=== PATIENT | male | born 1960 | race Caucasian/White ===

== ENCOUNTER 2017-05-29 15:04 | Inpatient (IN) | payer MEDICARE, MEDICAID ==
--- NOTE | ~2017-05-29 | PR ---
[place], [place] PROGRESS NOTE NAME: ALEXANDRA EAST [facility] #: [id number] UNIT #: [id number] ROOM: 316 DOCTOR: FANY DAVIS MD BIRTHDATE: [birth year] DOS: 05/31/2017 CHIEF COMPLAINT: "Hey, when do I get to go home. My daughter lives in [place]. I am from [place]." SUMMARY OF THE VISIT: The patient was interviewed as he sat in a Juliet chair waiting for his breakfast. He engaged in conversation. He does exhibit spotty memory loss. On a positive note, he does state that he has been here about 2 days; however, he exhibits other memory loss when pushed on fine details. Of note, the patient has been fairly cooperative. There have not been any major outbursts or any new behavior that has been unpredictable. He does seem to be tolerating the current medication regimen well and I see no sedation or somnolence. MENTAL STATUS: He is alert and oriented with time gaps. Mood does seem to be more euthymic. Affect is more appropriate. There is no doug or hypomania and no psychotic symptoms are noted. Short term memory is poor. Otherwise, he is intact. PLAN: I will continue my taper of the Klonopin bringing the Klonopin dose from 0.25 mg 3 times a day down to twice a day. I will simultaneously increase the Exelon patch from 4.6 to 9.5 mg a day while increasing the Namenda from 5 mg a day to 5 mg twice a day. His valproic acid level is therapeutic at 96.1. I will continue to monitor, continue to explore placement options, discharging then when psychiatrically stable. FANY DAVIS MD CM:PNTRANS [id number] FANY DAVIS MD 05/31/17 2356 interface
--- NOTE | ~2017-05-29 | PR ---
[place], [place] PROGRESS NOTE [id number] #: [id number] ROOM: 316 DOCTOR: FANY DAVIS MD BIRTHDATE: [birth year] DOS: 06/01/2017 CHIEF COMPLAINT: "Where do you put the borges, how do you turn this thing on." SUMMARY OF THE VISIT: The patient was interviewed as he sat in the dining area, watching television and waiting for breakfast. He seemed convinced that the Juliet chair that he was sitting in with some type of motorized vehicle and he was looking for the borges to turn it on and be able to drive out of here. He did redirect with some difficulty at no point in time once he agitated; however, he is very confused. MENTAL STATUS: He is alert and oriented to self. He does not realize he is in the hospital and he is certainly not oriented to time. Mood does seem to be still somewhat labile. Affect at times is inappropriate. Misrepresents things or misidentifies things. Short-term memory is exceedingly poor. PLAN: I will maintain his current dose of Depakote as his valproic acid level was therapeutic at 96.1. I see no side effects from the medication itself. I will maximize his Exelon patch from 9.5 to 13.3 mg a day. Continue to engage in individual and doran milieu activity, exploring possible placement options and returning to the least restrictive environment when stable. FANY DAVIS MD CM:PNTRANS [phone] FANY DAVIS MD 06/03/1731 interface
--- NOTE | ~2017-05-29 | PR ---
[place], [place] PROGRESS NOTE [id number] #: [id number] ROOM: 316 DOCTOR: FANY DAVIS MD BIRTHDATE: [birth year] DOS: 06/03/2017 CHIEF COMPLAINT: "I' up, I' am up." SUMMARY OF THE VISIT: The patient was interviewed as he was resting in bed. Nurses report that he had a horrible evening last night requiring multiple intramuscular injections with minimal results at first, later culminating in him finally going to bed. The patient was agitated and demanding to leave. He thought his daughter was here. Despite attempts to verbally redirect, he escalated first verbally and then second physically. MENTAL STATUS EXAMINATION: This morning, he is alert and oriented to self only. He does not realize he is at the hospital let alone at [place]. His responses were short and simple and at times totally inappropriate to the questions I asked of him. There is no doug or hypomania. PLAN: At the present time is now to finally discontinue the Klonopin in case the benzodiazepine is causing behavioral disinhibition. I will maximize out the dose of Namenda to 10 mg b.i.d. We will continue to engage in individual and doran milieu activity with the plan to return to at least restrictive environment when stable. FANY DAVIS MD CM:PNTRANS [id number] FANY DAVIS MD 06/03/17 1610 interface
--- NOTE | ~2017-05-29 | PR ---
[place], [place] PROGRESS NOTE [id number] #: [id number] ROOM: 316 DOCTOR: FANY DAVIS MD BIRTHDATE: [birth year] DOS: 06/07/2017 CHIEF COMPLAINT: "Oh you are back again." SUMMARY OF THE VISIT: The patient was interviewed as he reclined in a Juliet chair. He engaged in superficial conversation. He does report that he believes he is in the hospital ____. I attempted to redirect how much of this he retains is limited. He was fairly bright and pleasant with us. Nurses' report yet again he did not sleep at all last night and was up and very agitated throughout the night. MENTAL STATUS: He is alert and oriented to person, somewhat to place and not time. Mood remains labile. Affect inappropriate. There is no doug or hypomania. There is some delusional system present. PLAN: I will go ahead and discontinue trazodone as the 300 mg at bedtime has been ineffective. I will increase his Seroquel 50 mg twice daily and 200 at night, increasing that dose from 100-200. I will also utilize Remeron 15 at bedtime, both as an antidepressant and as a sleep aid to see if we can get him sleeping through the night once again. We will engage in individual and doran milieu activity, returning to the least restrictive environment when stable. FANY DAVIS MD CM:PNTRANS 1005 FANY DAVIS MD 06/08/17 0030 interface
--- NOTE | ~2017-05-29 | PR ---
[place], [place] PROGRESS NOTE NAME: [facility] [id number] UN[facility] #: [id number] ROOM: 316 DOCTOR: GUILLERMO ESTRELLA BIRTHDATE: [birth year] DOS: 06/02/2017 CHIEF COMPLAINT: "Good morning, I would like to go back to my room." SUMMARY OF VISIT: The patient was assessed in the dining room where he was sitting in a Juliet chair. He has finished breakfast. He engaged readily in conversation. Initially, he was hesitant to talk to me for a few seconds, but then I kept at it and he started responding to my questions, very cooperative. Nurses have noted that he is better. He is not pleasantly confused. He is ____ confused, but better. After engaging conversation with him, I can see what they are talking about. He wants when he wants ____, and if he does not get it as quickly as he thinks, he has some to say about it. MENTAL STATUS: He is alert and oriented to person, place, I do not think to time. Mood is tending towards euthymic. Affect overall was appropriate. No overt signs of auditory or visual hallucinations, delusions, paranoia, doug or hypomania. Some short-term memory issues. PLAN: His valproic acid level is in the therapeutic range, I can see from the notes of Dr. Dueñas, is trying to wean his Klonopin and titrate up his Namenda and his Exelon. I will continue to do so at this point in time. He is on the maximum dose of Exelon. I will go ahead and decrease the Klonopin to once a day and increase his Namenda. Again towards a goal of a maximum dose of 20 mg every day. We will continue to try to engage in individual and doran milieu therapy with the plan to discharge once stable. ROWAN ESTRELLA CNP CM:PNTRANS 3 3 GUILLERMO ESTRELLA 06/04/17853 interface
--- NOTE | ~2017-05-29 | PR ---
[place], [place] PROGRESS NOTE NAME: ALEXANDRA EAST [facility] #: [id number] UNIT #: [id number] ROOM: 316 DOCTOR: Caryn PAIZ,ARELY BIRTHDATE: [birth year] DOS: 06/08/2017 SUBJECTIVE: The patient seen and spoke with the staff. Per staff, the patient slept well, took his medication. No breakthrough problems or issues. The patient was pleasant, cooperative. He was in the day area. He reports doing good. He denied being depressed or sad. He reports good sleep and appetite. He denied any side effect from the medication. He was not in any distress. MENTAL STATUS EXAMINATION: The patient was pleasant, cooperative. Described his mood as "okay." Affect, mood congruent. Thought process goal directed. No flight of ideas, loosening of association. He denied auditory or visual hallucination. No delusion or paranoia noted. He denied suicidal ideation, intent or plan. He also denied homicidal ideation, intent or plan. ASSESSMENT: Schizoaffective disorder. PLAN: 1. Continue current medication and care. 2. Continue redirection. 3. Encouraged activity and doran milieu. ARELY PAIZ MD CM:TED [phone] Cayrn PAIZ 06/08/17 2159 interface
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
--- NOTE | ~2017-05-29 | PR ---
[place], [place] PROGRESS NOTE NAME: ALEXANDRA EAST [facility] #: [id number] UNIT #: [id number] ROOM: 316 DOCTOR: Caryn PAIZ,ARELY BIRTHDATE: [birth year] DOS: 06/09/2017 PSYCHIATRIC PROGRESS NOTE SUBJECTIVE: The patient seen and spoke with the staff. Per staff, the patient is doing well. No combative behavior. Slept well last night. Medication compliant. The patient was in his room. He reports doing good. No behavioral problems or issues. He denied any side effect from the medication. Denied being sad or depressed. He did not express any other concern. MENTAL STATUS EXAMINATION: The patient was pleasant, cooperative, described his mood as "good." Affect, mood congruent. Thought process goal directed. No flight of ideas or loosening of association. He denied auditory or visual hallucination. No delusion or paranoia noted. He denied suicidal ideation, intent or plan. He also denied homicidal ideation, intent or plan. ASSESSMENT: Schizoaffective disorder. PLAN: 1. Continue current medication and care. 2. Continue redirection and doran milieu. 3. Final medication management and discharge plan by the regular team. ARELY PAIZ MD CM:TED [id number] Caryn PAIZ 06/09/17 1547 interface
[2017-05-29] MEDS ORDERED: ZYPREXA10 M2 IM (15:16)
[2017-05-29] MEDS ORDERED: ZYPREXA7.5 M1 PO (15:17)
[2017-05-29] MEDS ORDERED: NORCO 5-325 TA1 EACH PO (15:19)
[2017-05-29] MEDS ORDERED: ASPIRIN ADULT L81 M1 PO (15:20)
[2017-05-29] MEDS ORDERED: BACITRACIN 500U30 GM OPH (15:21)
[2017-05-29] MEDS ORDERED: CLONAZEPAM0.25 MG PO (15:23)
[2017-05-29] MEDS ORDERED: COLACE100 MG PO (15:23)
[2017-05-29] MEDS ORDERED: CYCLOBENZAPRINE10 MG PO (15:24)
[2017-05-29] MEDS ORDERED: DEPAKOTE SPRIN125 MG PO (15:25)
[2017-05-29] MEDS ORDERED: NATURE'S BLEND F1 MG PO (15:25)
[2017-05-29] MEDS ORDERED: LOPRESSOR25 MG PO (15:26)
[2017-05-29] MEDS ORDERED: METFOMIN HYDRO850 MG PO (15:29)
[2017-05-29] MEDS ORDERED: METFORMIN500 MG PO (15:29)
[2017-05-29] MEDS ORDERED: MULTI-VITAMIN1 EACH PO (15:30)
[2017-05-29] MEDS ORDERED: TEMAZEPAM30 MG PO (15:31)
[2017-05-29] MEDS ORDERED: NATURE'S BLEND100 M2 PO (15:32)
[2017-05-29 18:25] VITALS: BP 144/99
[2017-05-29 18:33] VITALS: BP 144/99
--- NOTE | 2017-05-29 18:35 | NUR ---
ALEXANDRA EAST a 57 year old M admitted via wheel chair from the ADMITTING as a voluntary admission BY GUARDIAN Arrived on unit at .1815 ALLERGIES: .N Vital signs are: 98.7-81-18 144/99. The client signed the following forms with stated understanding: Authorization For The Release of Medical Information, Clothing List, Consent to Voluntary Admission and Hospitalization, Consent and Release Forms/Receipt of Rights, Acknowledgement of Advance Directive Information, Behavioral Health Consent Form, and Informed Consent of Medications. [facility] A search was conducted and hazardous articles were removed. Client was oriented to the unit. PASCUAL KATZ PT CAME UP IN A WHEELCHAIR WITH SECURITY, THIS NURSE AND MILEU, PT IS COOPORATIVE, PLEASANT AND TALKATIVE, PT IS UNSTEADY AND A TWO ASSIST. PT IS IN HIS STREET CLOTHING, NO HEARING AIDS, GLASSES, OR DENTURES. PT IS GOAL DIRECTED. BS IS 89
[2017-05-29 19:40] LABS: BASO % 0.2 % (0.0-1.0); EOS # 0.3 10*3/uL (0.0-0.4); HEMATOCRIT 39.3 % (42.0-52.0); HEMOGLOBIN 12.9 g/dl (14.0-18.0); LYMPH # 3.7 10*3/uL (1.3-4.4); LYMPH % 29.2 % (27.0-41.0); MEAN CORPUSCULAR HGB 32.8 pg (27.0-31.0); MEAN CORPUSCULAR HGB CONC 32.8 g/dl (33.0-37.0); MEAN PLATELET VOLUME 10.3 fl (9.6-12.3); MONO # 1.3 10*3/uL (0.1-1.0); MONO % 10.3 % (3.0-9.0); NEUT # 7.4 10*3/uL (2.3-7.9); PLATELET COUNT AUTOMATED 166 10*3/uL (130-400); RED BLOOD COUNT 3.93 10*6/uL (4.50-5.90); RED CELL DISTRI WIDTH 13.4 % (0-14.5); WHITE BLOOD COUNT 12.7 10*3/uL (4.8-10.8)
[2017-05-29 19:55] LABS: ALBUMIN 3.3 gm/dl (3.1-4.5); ALKALINE PHOSPHATASE 49 U/L (45-117); BUN 17 mg/dl (7-24); CHLORIDE 104 mmol/L (98-107); CHOLESTEROL 168 mg/dL (<200); CREATININE 0.87 mg/dL (0.70-1.30); HDL CHOLESTEROL 51 mg/dl (40-60); LDL CHOLESTEROL 94 mg/dL (9-159); POTASSIUM 4.1 mmol/L (3.5-5.1); SGOT/AST 15 IU/L (3-35); SGPT/ALT 9 U/L (12-78); SODIUM 140 mmol/L (136-145); TOTAL PROTEIN 7.7 gm/dL (6.4-8.2); TRIGLYCERIDES 117 mg/dl (<150); VLDL CHOLESTEROL 23 mg/dL (6-40)
[2017-05-29 20:00] VITALS: BP 116/88
--- NOTE | 2017-05-29 23:22 | NUR ---
DR GARCIA ON UNIT TO SEE PT FOR MEDICAL CONSULT.
--- NOTE | 2017-05-29 23:30 | NUR ---
PT HAS A SKIN TEAR ON EACH OF HIS FOREARMS. PICTURES TAKEN.
--- NOTE | 2017-05-30 06:50 | NUR ---
PT HAS BEEN OBSERVED ON Q 15 MIN CHECKS & HAS SLEPT PAST 22OO WITH 2 BRIEF AWAKENINGS TO GO TO THE BATHROOM. 1 TIME HE WAS INCONTINENT & THE OTHER TIME HE WAS INCONTINENT. ALSO CONTINENT OF A LARGE BOWEL MOVEMENT. WAS COMPLIANT WITH HS MEDICATIONS & TOOK THEM CRUSHED & MIXED IN APPLESAUCE.
[2017-05-30 08:19] VITALS: BP 142/85
[2017-05-30 08:25] VITALS: BP 142/85
--- NOTE | 2017-05-30 08:30 | NUR ---
Dr. Mccrary was notified of need for lab result review as an elevated WBC count is noted. He reports that he will review the labs this morning.
--- NOTE | 2017-05-30 09:38 | NUR ---
ISHAAN sent updated info. to [facility] Zaldivar to update the Pasrr, change of condition form.
--- NOTE | 2017-05-30 10:15 | NUR ---
NATHAN RECEIVED CALL FROM SISTER WILFREDO CORTEZ. WILFREDO WANTS PT TO GO TO FACILITY CLOS[facility] [place], [place] [facility]. PT IS ON WAITING LIST FOR [facility] UNIT. NATHAN NOTIFIED KATHY PHOENIX OF CONVERSATION.
--- NOTE | 2017-05-30 10:30 | NUR ---
NATHAN SPOKE WITH JUAN AT [facility] ABOUT REFERRAL THAT WERE MADE TO FACILITIES. JUAN HAD SENT 10-11 REFERRALS TO THE [facility] 6 MONTHS AGO. MOST FACILITIES WOULD NOT ACCEPT PT D/T BEHAVIORAL DISTURBANCE. [facility] WAS THE ONLY ONE THAT WOULD CONSIDER PT. PT DOES NOT HAVE ANY BED HOLD DAYS LEFT. SISTER TOOK ALL OF PT'S BELONGINGS WHEN HE WAS SENT TO [facility]. FACILITY DISCHARGED PT.
--- NOTE | 2017-05-30 13:07 | NUR ---
PHYSICAL THERAPY EVALUATION COMPLETED. PATIENT READY AND WILLING TO PARTICIPATE IN EVAL. PATIENT REQUIRES MULITPLE ATTEMPTS TO STAND FROM RECLINER/CHAIR. PATIENT ABLE TO STAND WITH MOD ASSIT X 1; ABLE TO TRANSFER FROM RECLINER TO CHAIR IN HIS ROOM WITH MOD A X 1 WITH DIFFICULTY, STRUGGLE, GETTING OUT OF CHAIR AND SLOW MOVEMENTS WITH SOME FREEZING TYPE EPISODES. PATIENTS. PATIENT HAS B LE STRENGTH WFL TESTING IN HIS CHAIR AND ABLE TO FOLLOW ONE STEP DIRECTIONS WELL. PATIENT REPORTED R LE PAIN AND WAS STATED 6/10 PAIN. PLAN TO CONTINUE PT FOR TRANSFERS, SAFETY, BALANCE, STRENGTHENING. PATIENT WILL BENEFIT FROM A WHEELCHAIR. MODERATE COMPLEXITY EVALUATION WITH INCREASED MANUAL CONTACT AND TIME NEEDED TO TRANSFER PATIENT AND TO REVIEW A MODERATE AMOUNT OF HISTORY. SIGNIFICANT AMOUNT OF EDUCATION REQUIRED FOR SAFETY.
--- NOTE | 2017-05-30 14:08 | NUR ---
Garrison was administered Pneumovax and Influenza vaccine on this date as previously requested. See process intervention screen and MAR. Both were administered as per policy for vaccines.
--- NOTE | 2017-05-30 16:23 | NUR ---
Occupational Therapy evaluation completed [facility] with full eval to follow. Precautions include fall risk, personal alarm, poor STM, moderate complexity level 28321. Recommend OT per POC and SNF upon d/c to enable max potential in ADLs, safety and mobility. Thank you for this referral. Aliya Durand OTR/L
--- NOTE | 2017-05-30 17:06 | NUR ---
Garrison is pleasant in conversation with staff. No aggressive behavior has been exhibited. Mood is generally euthymic and some appropriate smiling is present @ times. No overt s/s of sensory disturbances are noted. 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 Dr. Dueñas in to see him today. Physical therapy also in as well. States a belief that he is working @ this time and "travels alot." Dr. Clarke in to see Garrison today. Appetite is good for meals. Energy level appropriate. Refer to [facility] flowsheet for specific monitoring.
[2017-05-30 20:00] VITALS: BP 135/78
--- NOTE | 2017-05-30 21:15 | NUR ---
PATIENT RESTING IN BED AT THIS TIME. PATIENT MEDICATION COMPLIANT. VOICES NO COMPLAINTS OF PAIN OR DISCOMFORT AT THIS TIME. DRESSINGS TO BILATERAL FOREARMS INTACT
--- NOTE | 2017-05-31 04:37 | NUR ---
24 HR chart check completed.
--- NOTE | 2017-05-31 05:54 | NUR ---
Q 15 MINUTE CHECKS MAINTAINED. SLEPT > 7 HOURS THIS SHIFT
--- NOTE | 2017-05-31 07:47 | NUR ---
IN A DEENA CHAIR IN THE DINING ROOM
[2017-05-31 08:08] VITALS: BP 146/83
--- NOTE | 2017-05-31 08:09 | NUR ---
05/30/2017 Morning: Christy This helps the patient with self esteem, memory,thinking,concentrating,socializing and lifting up their spirits This patient did attend group as well as participated. Patient is new so i had everyone introuduce themselves and patient introuduce himself. Patient also told group a little about himself. Patient jumped right into group answered questions to christy,interacting with others and laughing along with others. Patient was appropriate during group
--- NOTE | 2017-05-31 12:54 | NUR ---
HIS SISTER(PAOLO) CALLED TO GET AN UPDATE. SHE STATED SHE WANTED HIM ON A REGUALR DIET, THAT THERE WAS NO REASON FOR HIM TO BE ON A PUREED DIET. THIS NURSE CALLED [facility] AND THEY DIDN'T KNOW WHY EITHER. THIS NURSE TALKED TO DESI
--- NOTE | 2017-05-31 13:09 | NUR ---
Exercise/Marceline Hole This helps with movement self esteem, concentration, thinking circulation and socialization Patient did attend group as well as participated. Patient was appropriate during group,also encouraging others. At times patient showed signs of confusion. Patient did very well in a seated position throwing the carrillo bags and making the pockets,being the high score of the group
--- NOTE | 2017-05-31 14:59 | NUR ---
PHYSICAL THERAPY Patient was aggitated and the activity person and nurse recommended that the patient not be treated today due to his increased aggitation. Patient was not treated today for this reason. 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
--- NOTE | 2017-05-31 15:29 | NUR ---
Remininscing This helps with memory,concentration, self esteem and socializing Patient was in attendence, didnt participate very much. Patient was agitated wanting out of his chair believing he was at work and if left in the chair would be stuck there over the weelend. not able to redirect him. notified nurse
--- NOTE | 2017-05-31 16:07 | NUR ---
PATIENT IDENTIFIED BY NAME AND WRIST BAND. PATIENT SEATED IN DEENA CHAIR UPON ARRIVAL THIS DATE IN ACTIVITY ROOM. PATIENT WILLING TO COMPLETE GROOMING TASK IN ROOM THIS DATE. PATIENT BRUSHED TEETH WITH MAX A REQUIRED DUE TO WEAKNESS B HAND OPEN CONTAINER AND INSTRUCITON REQUIRED TO SEQUENCE TASK. PATIENT REQUIRED SIMPLE ONE STEP COMMANDS. PATIENT SEEN 1:1 FOR 15 MINUTES. HOSSEIN SANCHEZ
--- NOTE | 2017-05-31 18:14 | NUR ---
ALERT TO SELF, CONFUSED, IRRITABLE AT TIMES, GETS LOUD AT TIMES, THINKS HE IS AT WORK AND DEMANDED TO GET OUT OF HERE, WAS REDIRECTABLE, NO HALLUCINATIONOR DELSUSIONS NOTED, MED COMPLIANT TAKES PILLS WHOLE, EATING AND DRINKING ADQUATELY, WILL CONTINUE TO MONITOR
[2017-05-31 20:18] VITALS: BP 142/90
--- NOTE | 2017-05-31 21:25 | NUR ---
MEDICATED WITH ATIVAN 1MG PO FOR INCREASED ANXIETY. ATIVAN EFFECTIVE FOR ANXIETY. RESTING IN BED AT THIS TIME
--- NOTE | 2017-06-01 03:54 | NUR ---
24 HR chart check completed.
[2017-06-01 08:00] VITALS: BP 118/82
--- NOTE | 2017-06-01 10:10 | NUR ---
PATIENT COMPLAINT OF RIGHT LEG PAIN 9/10 RATING, PRN TYLENOL 650MG PO GIVEN AT THIS TIME.
--- NOTE | 2017-06-01 10:46 | NUR ---
PATIENT IS CONTINENT, REPOSITIONED IN GERICHAIR, STATING "I'M GOING HOME, I WANT MY CAR TO DRIVE HOME". 1:1 WITH PATIENT, PROVIDED REDIRECTION, ACTIVITY, OFFERED FOOD AND DRINK. ALL INEFFECTIVE. PRN ATIVAN 1MG GIVEN PO AT THIS TIME D/T ESCULATION, RAISING VOICE, BUMPING RIGHT LEG ON TRAY. ENCOURAGED PATIENT TO PARTICIPATE IN GROUP ACTIVITY SESSION AT THIS TIME.
--- NOTE | 2017-06-01 11:10 | NUR ---
PATIENT NO LONGER COMPLAINING OF PAIN, PRN TYLENOL EFFECTIVE AT THIS TIME.
--- NOTE | 2017-06-01 11:16 | NUR ---
DR. SANABRIA ON UNIT TO SEE PATIENT.
--- NOTE | 2017-06-01 11:46 | NUR ---
PRN ATIVAN EFFECTIVE. PATIENT IS CALM AND READY FOR LUNCH AT THIS TIME.
--- NOTE | 2017-06-01 14:46 | NUR ---
PATIENT IS ALERT TO PERSON AND HANDS ON CARE WITH CONFUSION. SHORT AND CORRECTION MEMORY DEFICITS NOTED. MOOD IS ANGRY AND IRRITABLE AT TIMES. CONSTANT 1:1 AND REDIRECTION NOTED. THOUGHT PROCESS IS CONFUSED. DENIES ANY HALLUCINATIONS/DELUSIONS OR HI/SI. PATIENT MEDICATED WITH TYLEONOL FOR LEG PAIN AND WAS EFFECTIVE. 2 PERSON ASSIST WITH ADL'S, SET UP FOR MEALS. MEAL INTAKES ARE GOOD WITH ADEQUATE FLUIDS. CONTINENT OF BOWEL AND BLADDER. MEDICATION COMPLIANT WITH MEDICATION EDUCATION PROVIDED. Q 15 MINUTE SAFETY CHECKS MAINTAINED.
--- NOTE | 2017-06-01 18:36 | NUR ---
PATIENT YELLING AT OTHER PATIENT IN DINING ROOM, REDIRECTED AND CHANGE OF ENVIRONMENT. CONTINUES TO YELL OUT AT STAFF AND ESCULATING. PRN ATIVAN 1MG GIVEN PO AT THIS TIME.
[2017-06-01 20:00] VITALS: BP 142/82
--- NOTE | 2017-06-01 23:41 | NUR ---
PATIENT MEDICATION COMPLAINT. PATIENT TRANSFERRED TO BED WITH ASSIST X 2. CONTINUES TO BE SHAKY. PATIENT ALSO WORD SEEKING AND GETTING IRRITATED AT TIMES WHEN WORDS COME OUT INAPPROPRIATELY. PATIENT INCONTINENT OF URINE. VOICES NO COMPLAINTS OF PAIN OR DISCOMFORT AT THIS TIME
--- NOTE | 2017-06-02 04:19 | NUR ---
24 HR chart check completed.
--- NOTE | 2017-06-02 05:47 | NUR ---
Q 15 MINUTE CHECKS MAINTAINED. SLEPT > 8HRS THIS SHIFT
[2017-06-02 08:05] VITALS: BP 142/63
--- NOTE | 2017-06-02 16:26 | NUR ---
ALERT TO SELF,. CONFUSED, MED COMPLIANT TAKE PILLS WHOLE, RESTLESS, KEEPS TRYING TO SKOOT OOUT OF CHAIR. CONTINENT AND INCONTINENT, WOUND DRESSING INTACT. NO C/O PAIN, EATING AND DRINKING ADEQUATELY. TALKS NONSENSICAL, COVERS CONFUSION WITH HUMOR AT TIMES. NO DELUSIONS OR HALLUCINATIONS, NO COMATIVE OR VERBAL AGGRESSION
[2017-06-02 20:00] VITALS: BP 120/78
--- NOTE | 2017-06-02 22:05 | NUR ---
24 HR chart check completed.
--- NOTE | 2017-06-02 22:21 | NUR ---
PT SITTING IN THE DINING ROOM & HAS BEEN YELLING OUT. INCREASED IRRITABLITY. YELLING OUT FOR CHRIS & STATED THAT SHE IS HERE. SHE NEEDS TO PULL THE TRUCK UP & CALL MOHAN BECAUSE HES NOT GOING HOME TONIGHT BECAUSE ITS SNOWING OUTSIDE. ALERT TO PERSON ONLY. STATED THE YEAR IN 1988. UNRECEPTIVE TO PRESENTATION OF REALITY. COMPLIANT WITH HS MEDICATIONS. MEDICATED WITH ATIVAN 1 MG PO @ 2110.
--- NOTE | 2017-06-03 01:36 | NUR ---
WHEN ASSISTING PT TO BED HE BEGAN CURSING, YELLING & TRIED HITTING STAFF WITH HIS ELBOW. ATIVAN BRIEFLY EFFECTIVE. MEDICATED WITH GEODON 10 MG IM @ 2244 & THIS HAS BEEN EFFECTIVE. PT HAS BEEN RESTING QUIETLY PAST 2299.
--- NOTE | 2017-06-03 06:24 | NUR ---
TOVA HAS BEEN EFFECTIVE & PT HAS SLEPT QUIETLY PAST 2314.
[2017-06-03 07:53] VITALS: BP 139/80
--- NOTE | 2017-06-03 11:36 | NUR ---
PHYSICAL THERAPY Continue with original plan of care toward original goals extended to 06/15/17. Mandy Guardado,PT
--- NOTE | 2017-06-03 11:40 | NUR ---
PATIENT DECLINED OT THIS DATE STATING THAT HE WAS WAITING FOR SOMEONE. WILL TRY BACK LATER DATE. HOSSIEN SANCHEZ
--- NOTE | 2017-06-03 11:41 | NUR ---
Exercise/June Facts and Trivia Exercise helps with mobility,circulation as well as concentrating to stay on task. Trivia also helps with concentration,thinking socializing Patient did not attend exercise portion of group but joined the facts and Trivia portion. Patient had bouts of confussion during trivia. Seeming not understanding the question at times. Patient did talk about fall and halloween as a child
--- NOTE | 2017-06-03 14:29 | NUR ---
PHYSICAL THERAPY Patient presented to therapy with report of pain in his toes and feet. Patient performed sit to stands with standing tolerance for 30 sec. each stand at the railing in the hallway. Patient performed seated ther ex in seated position x 20 reps in all planes. Patient was 1:1 with this HAT BAND ATTACHER for 23 minutes total. Keith Maurer PTA
--- NOTE | 2017-06-03 17:30 | NUR ---
NATHAN RECEICVED CALL FROM JANE. Pilar SEARS /MATTY. WILFREDO HAS NOT FOUND A FACILITY FOR PT. NATHAN EXPLAINED THAT PT MAY NEED TO GO TO [facility] IF A FCILITY CAN NOT BE FOUND CLOSE TO [place]. WILFREDO IS GOING TO CALL JON TO SEE IF THEY WILL TAKE PT BACK.
--- NOTE | 2017-06-03 17:34 | NUR ---
DR. BACON ON UNIT TO SEE PATIENT.
[2017-06-03 20:00] VITALS: BP 140/80
--- NOTE | 2017-06-03 21:54 | NUR ---
PT WAS COMPLIANT WITH HS MEDICATIONS. BECAME ARGUMENTATIVE IN THE DINING ROOM WITH ANOTHER PEER. USING PROFANITY. WHEN REDIRECTED, HE CURSED & YELLED AT STAFF. MEDICATED WITH ATIVAN 1 MG PO @ 2053.
--- NOTE | 2017-06-03 22:23 | NUR ---
24 HR chart check completed.
--- NOTE | 2017-06-04 05:06 | NUR ---
ATIVAN WAS EFFECTIVE & PT SLEPT QUIETLY THROUGHOUT THE SHIFT PAST 2300.
[2017-06-04 08:49] VITALS: BP 139/80
--- NOTE | 2017-06-04 10:32 | NUR ---
PHYSICAL THERAPY Garrison was seen this AM 1:1 for his therapy session. Working on transfer supine/sit with MAX A X 1, X 3 up into sitting. Garrison getting aggitated at this time and not wanting up at all. CLARENCE TIDWELL SILVER PLATER.
--- NOTE | 2017-06-04 11:53 | NUR ---
CARMELITA HANSON AT BEDSIDE TO ASSESS PATIENT. MADE AWARE OF WBC AND ALT RESULTS THIS MORNING. NEW VO WRITTEN DOWN AND READ BACK TO COMPLETE UA/C&S VIA STRAIGHT CATH.
--- NOTE | 2017-06-04 12:51 | NUR ---
pt sister called and states she spoke to "Audi" at [facility] and pt. can return there when psychiatrically stable. SWS let NATHAN Irwin know to call and verify with L.PReba and also let sister know when d/c is planned.
--- NOTE | 2017-06-04 15:39 | NUR ---
Excercise/Bad Jokes and Slogans Benefits: mobility,flexability.circulation,socialization, Patient was in attendence for group but only partialy participated. Patient needed prompting to do exercises. Confused. Patient did attempt to answer a couple of the questions to the jokes but then became confused and worried about going to work. patient was hard to keep redirected back to subject. The group was benefitial to this patientes treatement helping him stay in present reality,and coping with his anger by laughter,deep breathing
--- NOTE | 2017-06-04 15:56 | NUR ---
ATTEMPTED TO STRAIGHT CATH PT PER ORDERS, MET RESISTANCE, STOPPED PROCEDURE. BLADDER SCANNER SHOWS RESIDUAL OF 222 ML'S. CARMELITA HANSON MADE AWARE. NNO AT THIS TIME.
--- NOTE | 2017-06-04 16:45 | NUR ---
CARMELITA HANSON ON UNIT AND INSERTED COLEMAN CATH D/T PT HAS HAD 500-600 ML INTAKE AND 0 ML OUTPUT FOR THIS SHIFT.
--- NOTE | 2017-06-04 17:03 | NUR ---
URINE SENT TO LAB AT THIS TIME FOR UA/C&S.
[2017-06-04 17:12] LABS: BILIRUBIN 1+ (NEGATIVE); BLOOD NEGATIVE (NEGATIVE); CLARITY CLEAR (CLEAR); COLOR YELLOW (YELLOW); GLUCOSE NEGATIVE (NEGATIVE); KETONE TRACE (NEGATIVE); LEUKO ESTERASE NEGATIVE (NEGATIVE); NITRITE NEGATIVE (NEGATIVE); SPECIFIC GRAVITY 1.025 (1.005-1.030)
[2017-06-04 17:24] LABS: BACTERIA TRACE; EPITHELIAL CELLS 0-2; MUCOUS 1+
[2017-06-04 20:19] VITALS: BP 146/78
--- NOTE | 2017-06-04 23:31 | NUR ---
24 HR chart check completed.
--- NOTE | 2017-06-05 00:55 | NUR ---
PT WAS IRRITABLE & VERY VULGAR WITH SEXUAL PROFANITIES AT STAFF. ATTEMPTED TO STRIKE OUT AT STAFF WHEN ASSISSTED TO BED. MEDICATED WITH ATIVAN 1 MG PO @ 2305 WITH WAS EFFECTIVE & PT HAS SLEPT QUIETLY PAST 2329.
--- NOTE | 2017-06-05 05:07 | NUR ---
ATIVAN HAS BEEN EFFECTIVE & PT HAS SLEPT QUIETLY THROUGHOUT THE SHIFT PAST 2329.
[2017-06-05 06:53] LABS: BASO % 0.2 % (0.0-1.0); EOS # 0.2 10*3/uL (0.0-0.4); EOS % 1.7 % (1.0-4.0); HEMATOCRIT 39.7 % (42.0-52.0); HEMOGLOBIN 13.2 g/dl (14.0-18.0); LYMPH # 3.8 10*3/uL (1.3-4.4); LYMPH % 40.1 % (27.0-41.0); MEAN CELL VOLUME 97.3 fl (80.0-94.0); MEAN CORPUSCULAR HGB 32.4 pg (27.0-31.0); MEAN CORPUSCULAR HGB CONC 33.2 g/dl (33.0-37.0); MEAN PLATELET VOLUME 10.1 fl (9.6-12.3); MONO # 1.1 10*3/uL (0.1-1.0); MONO % 11.7 % (3.0-9.0); NEUT # 4.4 10*3/uL (2.3-7.9); PLATELET COUNT AUTOMATED 172 10*3/uL (130-400); RED BLOOD COUNT 4.08 10*6/uL (4.50-5.90); RED CELL DISTRI WIDTH 13.1 % (0-14.5); WHITE BLOOD COUNT 9.5 10*3/uL (4.8-10.8)
[2017-06-05 07:23] LABS: ALBUMIN 2.7 gm/dl (3.1-4.5); ALKALINE PHOSPHATASE 49 U/L (45-117); BUN 21 mg/dl (7-24); CHLORIDE 101 mmol/L (98-107); CREATININE 0.72 mg/dL (0.70-1.30); POTASSIUM 3.5 mmol/L (3.5-5.1); SGOT/AST 11 IU/L (3-35); SGPT/ALT 9 U/L (12-78); SODIUM 139 mmol/L (136-145); TOTAL PROTEIN 7.4 gm/dL (6.4-8.2)
[2017-06-05 08:03] VITALS: BP 136/82
--- NOTE | 2017-06-05 10:46 | NUR ---
PHYSICAL THERAPY Garrison was seen this AM 1:1 for his therapy treatment. Pt not responding to verbal cues and was medicated last night i found out could not treat. CLARENCE TIDWELL VENEER REPAIRER MACHINE.
--- NOTE | 2017-06-05 10:54 | NUR ---
SARAH NOLANNP ON UNIT TO ASSESS PT.
--- NOTE | 2017-06-05 10:59 | NUR ---
06/04/17 Afternoon Crystal Ball: Positive future Patient did not attend group. Patient asleep
--- NOTE | 2017-06-05 13:05 | NUR ---
Exercise/Positivity Patient did not attend group this morning. Patient was still asleep
--- NOTE | 2017-06-05 13:10 | NUR ---
PHYSICAL THERAPY Garrison was seen this PM for his physical therapy session, Pt was up in the day room in his gerichair. With much verbal cueing, Sit/Stand transfer was completed with Mod A x 1 from chair to wheeled walker. Followed by gait, 80' x 1 with Mod A x 1 and verbal cueing for gait, balance and walker safety. Pt back in gerichair at this time with tray up. Pt tolerated session very well. CLARENCE TIDWELL UPSTAIRS MAID
--- NOTE | 2017-06-05 18:35 | NUR ---
PT ALERT TO PERSON ONLY, CONFUSED TO PLACE AND TIME. PT MED COMPLIANT WITHOUT DIFFICULTY. PT ANXIOUS AT TIMES, YELLING OUT, SWEARING AT STAFF. PT PLACED IN QUIET ROOM TO CALM. PT DENIES ANY HOMICIDAL/SUICIDAL THOUGHTS. NO RESPONSE TO INTERNAL STIMULI NOTED. PT UP TO RASHMI, 2 ASSIST WITH TRANSFERS. COLEMAN DRAINING DARK YELLOW URINE. PLAN IS TO MONITOR PT BEHAVIORS ON Q15 MIN SAFTEY CHECKS, PRESENT REALITY TO PT WITH EACH INTERACTION, ENCOURAGE PT TO PARTICIPATE IN GROUPS/ACTIVITIES.
[2017-06-05 20:50] VITALS: BP 145/92
--- NOTE | 2017-06-06 04:34 | NUR ---
24 HR chart check completed.
--- NOTE | 2017-06-06 07:41 | NUR ---
PT ALERT TO PERSON ONLY, MULTIPLE MEDICATIONS AT HS. PT CONTINUES TO BE VULGAR AN COMBATIVE WITH HS CARE, MEDICATION COMPLIANT. 1-1 INEFFECTIVE DUE TO CONFUSION PROVIDED FOOD FLUIDS AND HYGENE CARE. PLACED IN QUIET ROOM ACROSS FROM NURSES STATION FOR INCREASED SUPERVISION DUE TO HIGH FALL RISK. PT INCREASINGLY ALERT AND PLESANT NIGHT WENT ON. PT AGREABLE TO SHOWER, CONTINUES TO BE ALERT TO PERSON ONLY STATING THAT HIS DAUGHTER IS IN THE 8TH GRADE AND BEGINING TO PLAY GOLF. ORAL INPUT 250, COLEMAN OUTPUT 300 DARK URINE. ORAL INTAKE ENCOURAGED.
[2017-06-06 08:00] VITALS: BP 138/84
--- NOTE | 2017-06-06 08:03 | NUR ---
06/05/17 Afternoon BIN This will help patient with his treament goals by solializing,interacting positivly with other patients to use his coping skils to decrease agitation. Patient did attend group as well as participate. Patient stayed on task,with very little help from another patient if patient saw he missed a number. Patient did very well no confusion,no aggressive behavior. Patient did start to "get loud" when another patient started wanting to know if anyone know of a good cruise staff member. Patient was redirected easily
--- NOTE | 2017-06-06 10:16 | NUR ---
PATIENT UP IN CHAIR AT THIS TIME IN DAY ROOM, PARTCIPATING IN GROUP THERAPY. PLEASANTLY CONFUSED AT THIS TIME. CALM AND COOPERATIVE WITH STAFF. MEDICATION COMPLIANT WITHOUT DIFFICULTY. NO HALLUCINATIONS, DELUSIONS, OR BEHAVIORS NOTED. NO COMBATIVENESS NOTED. APPETITE GOOD FOR BREAKFAST. TAKING FLUIDS WELL. SPEECH IS NON SENSICAL D/T CONFUSION. REQUIRES TOTAL CARE FROM STAFF FOR ADLS AND HYGIENE CARE. RESPIRATIONS EASY AND EVEN. COLEMAN INTACT AND DRAINING ORANGE TINTED URINE. NO ACUTE DISTRESS NOTED. PLEASANT INTERACTIONS WITH PEERS.
--- NOTE | 2017-06-06 10:44 | NUR ---
PHYSICAL THERAPY Mr Oreilly was seen this AM X 2, and said NO that he was not going to go or get up and was not going to take his therapy. CLARENCE TIDWELL REAL ESTATE ANALYST.
--- NOTE | 2017-06-06 13:30 | NUR ---
Exercise/Choices/Trivia This will help the patient with his treatment goal of less aggresstion,coping skills. Patient stayed on task while doing exercise. Patient was joking and making all the patients and myself laugh. There seemed to be confussion but then there would be clarity also. Patient was interacting and encouraging and talking with other patients.Laughing and smiling
--- NOTE | 2017-06-06 16:15 | NUR ---
NATHAN left VM for Adm - [facility] of [facility] about taking PT back anf facility and pending discharge is early next week.
--- NOTE | 2017-06-06 16:23 | NUR ---
NATHAN received VM from sister Leslie Guillen. NATHAN returned call. Sister confirm bed hold for [facility] with Adm Huntley. Pendig discharge for next week.
--- NOTE | 2017-06-06 18:12 | NUR ---
WOUND CARE TREATMENTS COMPLETED TO BILATERAL ARMS THIS SHIFT. PT TOLERATED WELL. DENIES ANY PAIN TO AREAS.
[2017-06-06 20:26] VITALS: BP 115/70
--- NOTE | 2017-06-07 01:00 | NUR ---
PT INCREASINGLY CONFUSED FEARFULL OF FALLING OUT OF THE CHAIR. WHEN ATTEMPTING TO PROVIDE CARE PT YELLING OUT "FUCK YOU, YOU NIGGER, YOU FAT FUCKING BITCH". ALERT TO PERSON ONLY UNABLE TO REDIRECT OR CALM. PT STATES THAT STAFF ARE ARGUING WITH HIM AND THAT HE HAS TO GO TO WORK. PT CALLING OUT FOR DAUGHTER CHRIS STATING SHE IS IN THE 8TH GRADE SHE IS JUST A GIRL. PT REPOSITIONED FOR COMFORT. UNABLE TO PLACE IN BED AT THIS TIME HAD PREVIOUS UNSUCCESSFULL ATTMEPT AT 2200, YELLING OUT DISTURBING SLEEP OF PEERS IN ADJACENT ROOMS.
--- NOTE | 2017-06-07 04:28 | NUR ---
24 HR chart check completed.
--- NOTE | 2017-06-07 05:05 | NUR ---
PT DECREASED IN AGITATION IN QUIET ROOM. CONTINUES TO BE RESTLESS AND HAS NOT SLEPT THIS SHIFT. MEDICATION COMPLIANT WITH OUT DIFFICULTY. FLUIDS ENCOURAGED BUT REFUSING, REFUSED HS SNACK ORAL INTAKE 250 ML THIS SHIFT. IMPROVING CLARITY OF URINE. CONTINUE TO REORIENT TO PLACE AND TIME AND REDIRECT NEEDED FOR EPISODES OF AGRESSION AND DISRUPTION.
--- NOTE | 2017-06-07 07:36 | NUR ---
PT DID NOT SLEEP AT ALL THROUGHOT THE NIGHT . MOOD BEGAN TO BRIGHTEN AFTER 1 AM. COMBATIVE WITH CARE BUT REDIRECTABLE AT TIMES, MED COMPLAINT REFUSING SNACK AND MUCH ENCOURAGEMENT FOR FLUID INTAKE.
[2017-06-07 08:00] VITALS: BP 117/67
--- NOTE | 2017-06-07 08:06 | NUR ---
06/06/17 Afternoon SAMUEL This group helps the patient with his treatment goals by staying on task, oriented to reality,decrease in aggression Patient did attend group as well as participated. Patient also has a good sense of humor and was joking with other patients and staff as well as staying on task. Patient showed no signs of aggression or confussion during group
--- NOTE | 2017-06-07 09:32 | NUR ---
PHYSICAL THERAPY Garrison seen this AM 1:1, Pt up in his gerichair leaning to his right. With much verbal cueing transfer sit/stand with MAX A X 1, and up on his third try. Standing balance with wheeled walker MAX A X 1, gait just 13' X 1, MAX A X 1, and Garrison needing cleaned up at this time. I let his nurse know, treatment time 16 min. CLARENCE TIDWELL 911 EMERGENCY DISPATCHER.
--- NOTE | 2017-06-07 11:27 | NUR ---
PATIENT IDENTIFIED BY NAME AND DATE OF THIS DATE. PATIENT COMPLETED GROOMING SITTING DEENA CHAIR MAX A THIS DATE WITH SIMPLE ONE STEP COMMANDS. PATIENT REQUIRD MAXA INCREASE POSTURE SECONDARY R LATERAL LEAN. PATIENT DEMONSTRATES POOR SAFETY AWARENESS. HOSSEIN VO/Cj
--- NOTE | 2017-06-07 11:46 | NUR ---
NATHAN spoke with Sister/DPOHC Leslie Quezada Leslie wishes to speak with Dr. Uribe prior to Pt's dsicharge. NATHAN will informed DR. Dueñas and he does not have time to call today and will call Saturday.
--- NOTE | 2017-06-07 18:46 | NUR ---
PT IS PLEASANTLY CONFUSED THIS SHIFT. SPEECH IS NON SENSICAL D/T CONFUSION. NO HALLUCINATIONS, DELUSIONS, OR BEHAVIORS. APPETITE AND INTAKE POOR THIS SHIFT. WILL CONTINUE TO ENCOURAGE FLUIDS. COLEMAN DRAINING DARK COLORED URINE. MEDICATION COMPLIANT WITHOUT DIFFICULTY. WILL CONTINUE TO REORIENT NEEDED. Q15 MIN CHECKS PER ORDERS.
[2017-06-07 20:03] VITALS: BP 145/81
--- NOTE | 2017-06-08 06:07 | NUR ---
PT CONTINUES WITH IRRITABLE MOOD, MED COMPLIANT WITH OUT COAXING CRUSHED IN PUDDING. ALERT TO PERSON ONLY. IMPROVED COMPLIANCE WITH STAFF DURING HS CARE. SLEPT IN BED 8 HOURS WITH OUT INTURRUPTION. INCONTINENT OF BOWEL. CONTINUE POC
[2017-06-08 08:39] VITALS: BP 144/74
--- NOTE | 2017-06-08 15:52 | NUR ---
Garrison is noted to exhibit confusion and requires assistance from staff to complete simple tasks. Oriented to person only. Memory impairment is noted and he is unable to retain information provided by staff during 1:1 interactions. Compliant with prescribed medications. No overt s/s of sensory disturbances are noted. Fall precautions continue and have been maintained throughout the shift. Napped approximately 2 hours in managing editor. No physical complaints voiced. Dr. Mock in to see him today. Refer to [facility] flowsheet for specific monitoring.
[2017-06-08 19:53] VITALS: BP 113/78
--- NOTE | 2017-06-08 23:38 | NUR ---
PATIENT WITH DECREASE IN IRRITABILITY. SITTING IN DINING AREA WATCHING FOOTBALL GAME ON TELEVISION. COLEMAN PATENT, DRAINING LORENA URINE. FLUIDS ENCOURAGED. DENIES DISCOMFORT AND PAIN AT THIS TIME
--- NOTE | 2017-06-09 02:27 | NUR ---
24 HR chart check completed.
--- NOTE | 2017-06-09 06:48 | NUR ---
Q 15 MINUTE SAFETY CHECKS MAINTAINED. SLEPT < 6 HRS THROUGHOUT SHIFT
[2017-06-09 08:25] VITALS: BP 140/78
--- NOTE | 2017-06-09 16:37 | NUR ---
Garrison is compliant with medications. Marked confusion is noted and he is oriented to self only. Irrelevant in responses to staff and has been noted to express some delusional statements that are grandiose in nature. 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 When reality is presented, he responds with an irrelevant statement. Requires maximal assistance with ADL's but he is able to feed self. @ times he is noted to think that he is in another place and time. It is reported that he became agitated when showered today by milieu, but was able to be redirected. Dr. Mock in to see Garrison today. Refer to [facility] flowsheet for specific monitoring.
--- NOTE | 2017-06-09 18:11 | NUR ---
Dr. Sandhu in to see Garrison and orders were received to discontinue Ely catheter today.
--- NOTE | 2017-06-09 19:43 | NUR ---
THIS NURSE SPOKE WITH PATIENT SISTER, WILFREDO. SISTERWILFREDO INQUIRING ON PATIENT MEDICATIONS. SISTERWILFREDO TO CALL BACK [place] TO TALK TO [employer] SAFETY INSPECTOR ABOUT PATIENT DISCHARGE PLANS
[2017-06-09 20:01] VITALS: BP 127/77
--- NOTE | 2017-06-09 23:00 | NUR ---
PATIENT URINATING WITHOUT DIFFICULTY. CONTINENT OF BLADDER BEFORE GOING TO BED. CONTINENT OF BOWEL X 1. FLUIDS PROVIDED
--- NOTE | 2017-06-10 02:57 | NUR ---
24 HR chart check completed.
--- NOTE | 2017-06-10 07:10 | NUR ---
Q 15 MINUTE SAFETY CHECKS MAINTAINED. SLEPT > 8 HOURS THROUGHOUT SHIFT
[2017-06-10 08:15] VITALS: BP 130/82
--- NOTE | 2017-06-10 09:00 | NUR ---
NATHAN received VM from Sister/DPOAHC Leslie Guillen about wanting to speak with Dr. Dueñas. SW took name and number and gave to Dr. Dueñas to call Leslie.
[2017-06-10] MEDS ORDERED: MIRTAZAPINE15 M2 PO (09:28)
[2017-06-10] MEDS ORDERED: EXELON13.3 MG/21 T (09:28)
[2017-06-10] MEDS ORDERED: DIVALPROEX SOD125 M1 PO (09:28)
[2017-06-10] MEDS ORDERED: MEMANTINE HCL10 MG PO (09:28)
[2017-06-10] MEDS ORDERED: QUETIAPINE FUM100 M3 PO (09:28)
[2017-06-10] MEDS ORDERED: Vitamin D PO (09:28)
[2017-06-10] MEDS ORDERED: QUETIAPINE FUMA50 M1 PO (09:28)
--- NOTE | 2017-06-10 09:30 | NUR ---
ON UNIT TO ASSESS PT.
--- NOTE | 2017-06-10 09:52 | NUR ---
PHYSICAL THERAPY Pt seen this AM 1:1 for his therapy session, and today was Pt's best. Transfer supine/sit MOD A X 1, sitting balance CG A X 1, sit/stand and up on wheeled walker MOD A X 1. Gait total 60' X 1, then sitting rest followed by 80' X 1, sitting rest with MOD A X 1. Pt wheeled up to the day room for his [facility] at this time and had a very good morning. CLARENCE TIDWELL FIBREGLASS LAY UP WORKER.
--- NOTE | 2017-06-10 10:29 | NUR ---
ATTEMPTED TO NOTIFY AT [phone] REGARDING PT DISCHARGE. WILL RE-TRY AT A LATER TIME.
--- NOTE | 2017-06-10 10:34 | NUR ---
RETURNED CALL, NOTIFIFED OF PT DISCHARGE FOR THIS AFTERNOON. NO FURTHER ORDERS AT THIS TIME.
--- NOTE | 2017-06-10 11:52 | NUR ---
This nurse evaluate patient bilateral forearms. Intact scabs noted to bilateral forearms. No drainage noted. No redness surrouding area. Patient is to be d/c today.
--- NOTE | 2017-06-10 12:05 | NUR ---
ALBA received call from Leslie Guillen Sister/DPOAHC inquiring about a direct number for Dr. Dueñas. Sw informed her that ALBA gave Dr. Dueñas her name and number and asked him again to call her. Leslie has not recevied call from Dr. Dueñas. Pt to be discharge to [facility] today and Alba will call Leslie back with discharge time.
--- NOTE | 2017-06-10 12:14 | NUR ---
PATIENT SEEN FOR 15 MINUTES THIS DATE. PATIENT IDENTIFIED BY NAME AND DATE OF . COMPLETED STAND PIVOT TRANSFER [facility] WITH MOD VERBAL CUES TECHNIQUE/HAND PLACEMENT FOR SAFETY SECONDARY PATIENT DEMONSTRATING DECREASE SAFETY AWARENESS. COMPLETED W/C MOBILTY SBA WHEELING STRAIGHT AND OCCASIONAL MIN A TURNS WITH MOD INSTRUCTION STRIDE/ PROPER HAND PLACEMENT AND CUES TO USE B FEET TO ASSIST DOWN HALLWAY. PATIENT COMPLETED STAND PIVOT TRANSFER TAY W/C TO [facility] USE FWW AND MOD VERBAL CUES FWW MANAGEMENT AND HAND PLACEMENT. PATIENT DEMOSNTRATED POOR SAFETY AWARENESS. PATIENT SEATED BACK IN [facility] WITH TRAY AND ALARM. HOSSEIN VO/Cj
--- NOTE | 2017-06-10 12:15 | NUR ---
NATHAN called Dean Andujar. Audi - Adm. not in today. Transferred and no one is anwering the phone.
--- NOTE | 2017-06-10 13:16 | NUR ---
Exercise/Memory Ball This will help patient in his treatment plan goals of positvive interactions,staying on task and focusing Patient did attend group as well as participate. Patient followed direction,stayed on task and showed no inappropriate behavior. Patient shared memories,joked with other patients and laughed at other patients funny memories
--- NOTE | 2017-06-10 14:30 | NUR ---
NATHAN spoke with Ice House Supervisor again at [facility] and informed her that Pt would be returning today. transporation time will be scheduled and facility notified of fruit picker time.
--- NOTE | 2017-06-10 14:35 | NUR ---
SW requested Client Sales And Service Officer fax updated information to [facility] and arrange transporation for Pt to return to facility.
--- NOTE | 2017-06-10 16:21 | NUR ---
Made Transportation requests with [facility] (they can pick him up but not until 8pm which would have him arrive at [facility] at 10pm, which is too late in the evening, per our director. they can pick him up at 10:30 am tomorrow. Called [facility], they could not. [facility] and [facility] said the destination is out of their service area. [place], [place] ambulance said they don't do [place] trips. [facility] ambulance had me fax over the demographics and the certificate of medical necessity, which I faxed. They willsee what they can do this evening and call us back.
--- NOTE | 2017-06-10 16:47 | NUR ---
CALLED NURSE TO NURSE TO SHANEKA AT [facility]. PT ALERT TO PERSON, CONFUSED TO ALL OTHER ASPECTS. PT IS CALM, INTERACTING WITH STAFF AND PEERS. NO HALLUCIANTIONS OR DELUSIONS NOTED. PT DENIES ANY HOMICIDAL/SUICIDAL THOUGHTS. PT CONTINENT AND INCONTINENT OF BOWEL AND BLADDER AT TIMES, CARE PROVIDED NEEDED, LAST BM NOTED 06/09/17.
--- NOTE | 2017-06-10 17:47 | NUR ---
NATHAN notified Sister/DPOHC Leslie Guillen that Pt was being discharge tonight and would be returning to [facility]. Transportation to arrive anytime for Pt. NATHAN verified address and will mail discharge paperwork to [facility].
--- NOTE | 2017-06-10 18:01 | NUR ---
PT D[facility]
--- NOTE | 2017-06-11 07:56 | NUR ---
PHYSICAL THERAPY CO-SIGN I approve of the Phyical Therapy notes written above. AVEL DASILVA PT
--- NOTE | 2017-06-11 15:24 | NUR ---
Mechanical Design Drafter Note: Mailed the packet to the legal guardian (Krupa bud) for signatures.
--- NOTE | 2017-06-12 08:14 | NUR ---
OCCUPATIONAL THERAPY CO-SIGN I approve of the Occupational Therapy notes written above. SILVIA CARRION OTR/Cj
== END 2017-06-10 17:57 | disposition home or self-care (01) | DRG 884 ==
LOC: 3N 15:04
PROVIDERS: Registered Nurse; ADMIT Psychiatry & Neurology Psychiatry
DX: F01.51 Vascular dementia, unspecified severity, with behavioral disturbance (principal); F02.81 Dementia in other diseases classified elsewhere, unspecified severity, with behavioral disturbance; E88.81 Metabolic syndrome and other insulin resistance; F23 Brief psychotic disorder; E11.65 Type 2 diabetes mellitus with hyperglycemia; G31.83 Neurocognitive disorder with Lewy bodies; I10 Essential (primary) hypertension; K76.0 Fatty (change of) liver, not elsewhere classified; D53.9 Nutritional anemia, unspecified; E78.5 Hyperlipidemia, unspecified; F25.9 Schizoaffective disorder, unspecified; G47.33 Obstructive sleep apnea (adult) (pediatric); F41.1 Generalized anxiety disorder; R33.9 Retention of urine, unspecified; Z90.49 Acquired absence of other specified parts of digestive tract; Z87.891 Personal history of nicotine dependence; Z88.0 Allergy status to penicillin; Z79.82 Long term (current) use of aspirin; Z79.84 Long term (current) use of oral hypoglycemic drugs; Z79.899 Other long term (current) drug therapy